=== PATIENT | female | born 1990 | race Caucasian/White ===

== ENCOUNTER 2016-04-24 17:57 | Emergency (ER) | payer OTHER ==
[2016-04-24] MEDS ORDERED: MAALOX/LIDO2%VISC/SIMETHICONE 40 ML BOT ONE (18:35)
[2016-04-24] MEDS ORDERED: SODIUM CHLORIDE 0.9% 1,000 ML ONE (19:25)
[2016-04-24] MEDS ORDERED: PANTOPRAZOLE SODIUM 40 MG VIAL IV ONE (19:25)
[2016-04-24] MEDS ORDERED: FENTANYL 100 MCG/2 ML VIAL ONE ×2 (19:25→20:09)
[2016-04-24 19:45] LABS: ABSOLUTE NEUTROPHIL COUNT 5.6 K/mm3 (1.8-7.7); BASO % 0.2 % (0.2-1.0); EOS % 0.5 % (0.9-2.9); HEMATOCRIT 39.9 % (37.0-47.0); HEMOGLOBIN 13.5 gm/l (12.0-16.0); IMM NEUT% 0.4 % (0-1); LYMPH # 2.3 (1.0-4.8); LYMPH % 26.8 % (15-45); MEAN CELL VOLUME 91.7 fl (81.0-99.0); MEAN CORPUSCULAR HGB CONC 33.8 g/dl (33.0-37.0); MEAN PLATELET VOLUME 10.7 fl (7.4-10.4); MONO # 0.6 (0.0-0.8); MONO % 6.9 % (4-12); NEUT % 65.2 % (43-75); PLATELET COUNT 215 K/mm3 (130-400); RED CELL DISTRIBUTION WIDTH 11.2 % (11.5-14.5)
[2016-04-24 19:58] LABS: ALB/GLOB RATIO 1.5 (>1.0); ALBUMIN 4.1 gm/dL (3.5-5.7); CALCIUM 9.3 mg/dL (8.6-10.3)
--- NOTE | 2016-04-25 08:10 | US ---
ABDOMINAL-COMPLETE History: Abdomen pain since cholecystectomy. Comparison: Ultrasound examination dated 04/01/2016 and abdomen MRI examination dated 12/29/2015. Findings: Pancreas: There is a normal appearance of the visualized portions of the pancreas. Gallbladder: The gallbladder is surgically absent. There is a small anechoic collection in the gallbladder fossa measuring approximately 11 x 16 x 10 mm in size which may reflect focal fluid in this location. Biliary tree: The common hepatic duct measures 6.1 millimeters adjacent to the hepatic artery. There is evidence of an echogenic shadowing focus within the distal common bile duct in the region of the head of the pancreas measuring 7.7 x 6.5 mm, suspicious for an intraductal stone. The extrahepatic biliary tree is more prominent than that seen on prior examination. Liver: The liver is relatively homogeneous. There is however the suggestion of intrahepatic biliary dilatation. Kidneys: The renal echogenicity is normal. the right kidney measures 11.3 centimeters from pole to pole. The left kidney measures 11.7 centimeters from pole to pole. No masses or evidence of hydronephrosis is visualized. Spleen: The spleen is homogeneous. The spleen measures 15.1 centimeters in greatest anterior to posterior dimension. The splenic volume is 501 cc. Aorta/IVC: The abdominal aorta and Inferior Vena Cava are normal where visualized. Impression: 1. Prior cholecystectomy with a residual small focal fluid collection within the gallbladder fossa. Considerations include a postoperative seroma versus biloma. 2. Findings suggestive of choledocholithiasis with a 7 mm shadowing focus within the distal common bile duct at the level of the pancreatic head. There is prominence of the intra and extrahepatic biliary tree, increased from prior examination. 3. Splenomegaly. The findings were called to the emergency room at 2222 hours, 04/24/2016, by [facility].
[2016-04-26 14:06] LABS: HEP B CORE AB, IGM Non React (Non React); HEPATITIS B SURFACE AG Non React (Non React); HEPATITIS C ANTIBODY Non React (Non React)
== END 2016-04-25 00:10 | disposition short-term general hospital (02) ==
LOC: ED 17:57
DX: K80.50 Calculus of bile duct without cholangitis or cholecystitis without obstruction (principal); R10.12 Left upper quadrant pain; R11.0 Nausea; F17.290 Nicotine dependence, other tobacco product, uncomplicated
CPT/HCPCS: 83690; 86705; 86709; 86803; 86340; 85025; 80053; 76700; 96375; 96376; 99284; 96374; 96361 ×2; 36415; 99285; J3010 ×2; A9270; C9113; J7030